=== PATIENT | male | born 1985 | race Caucasian/White ===

== ENCOUNTER 2020-05-12 15:00 | Outpatient (REF) | payer BC, SELFPAY ==
[2020-05-12 15:36] LABS: MANUAL DIFF FLAG NO
[2020-05-12 15:44] LABS: Basophils Percent Auto 0.4 % (0-2); Eosinophils Absolute Auto 0.1 X10*3/uL (0.0-0.4); Eosinophils Percent Auto 0.9 % (0-4); Hematocrit 41.2 % (42-52); Hemoglobin 14.1 g/dl (14.0-18.0); Imm Gran Abs Auto 0.02 X10*3/uL (0.00-0.03); Imm Gran Pct Auto 0.2 % (0.0-0.4); Lymphocytes Absolute Auto 2.8 X10*3/uL (1.2-4.9); Lymphocytes Percent Auto 25.2 % (20-40); Mean Corpuscular HGB Conc 34.2 g/dl (31.0-36.0); Mean Corpuscular Volume 87.7 fL (80-98); Mean Platelet Volume 8.7 fL (9.4-12.4); Monocytes Absolute Auto 0.8 X10*3/uL (0.1-1.2); Monocytes Percent Auto 7.4 % (2-11); Neutrophils Absolute Auto 7.4 X10*3/uL (2.0-8.3); Neutrophils Percent Auto 65.9 % (45-73); Platelet Count 260 X10*3/uL (160-400); Red Cell Distribution Width 12.9 % (11.0-16.0); White Blood Count 11.2 X10*3/uL (4.8-10.8)
[2020-05-12 16:00] LABS: Alanine Aminotransferase 16 U/L (0-40); Albumin Level 4.4 g/dL (3.5-5.0); Alkaline Phosphatase 67 U/L (39-117); Anion Gap 12 (12-20); Aspartate Amino Transferase 15 U/L (5-37); Bilirubin Total 0.8 mg/dL (0.0-1.0); Blood Urea Nitrogen 14 mg/dL (9-16); Calcium 8.9 mg/dL (8.4-10.2); Carbon Dioxide 24 mmol/L (22-29); Chloride 109 mmol/L (96-108); Cholesterol 145 mg/dL; Estimated Glomerular Filt Rate > 60; Glucose Fasting 76 mg/dL (60-99); HDL Cholesterol 33 mg/dL; LDL Cholesterol Calculated 96 mg/dl; Potassium 3.7 mmol/L (3.3-5.1); Sodium 141 mmol/L (135-145); Total Protein 6.8 g/dL (6.5-8.0); Triglycerides 83 mg/dL
== END 2020-05-12 15:01 | disposition home or self-care (01) ==
LOC: HO.LAB 15:00
PROVIDERS: PCP Internal Medicine; Visit Provider Internal Medicine
DX: Z00.00 Encounter for general adult medical examination without abnormal findings (principal)
CPT/HCPCS: 36415; 80053; 80061; 85025

== ENCOUNTER 2022-05-02 12:00 | Outpatient (REF) | payer BC, SELFPAY ==
[2022-05-02 12:20] LABS: MANUAL DIFF FLAG NO
[2022-05-02 14:23] LABS: Basophils Absolute Auto 0.1 X10*3/uL (0.0-0.2); Basophils Percent Auto 0.6 % (0-2); Eosinophils Absolute Auto 0.1 X10*3/uL (0.0-0.4); Eosinophils Percent Auto 1.4 % (0-4); Hematocrit 45.6 % (42.0-52.0); Hemoglobin 15.1 g/dl (14.0-18.0); Imm Gran Abs Auto 0.03 X10*3/uL (0.00-0.03); Imm Gran Pct Auto 0.4 % (0.0-0.4); Lymphocytes Percent Auto 23.1 % (20-40); Mean Corpuscular HGB Conc 33.1 g/dl (31.0-36.0); Mean Corpuscular Hemoglobin 29.2 pg (27.0-33.0); Mean Platelet Volume 8.5 fL (9.4-12.4); Monocytes Absolute Auto 0.7 X10*3/uL (0.1-1.2); Monocytes Percent Auto 8.3 % (2-11); Neutrophils Absolute Auto 5.6 x10*3/uL (2.0-8.3); Neutrophils Percent Auto 66.2 % (45-73); Platelet Count 244 X10*3/uL (160-400); Red Blood Count 5.18 X10*6/uL (4.60-5.80); Red Cell Distribution Width 13.4 % (11.0-16.0); White Blood Count 8.5 X10*3/uL (4.8-10.8)
[2022-05-02 14:50] LABS: Alanine Aminotransferase 28 U/L (0-40); Albumin Level 4.4 g/dL (3.5-5.0); Alkaline Phosphatase 83 U/L (39-117); Anion Gap 14 (12-20); Aspartate Amino Transferase 23 U/L (5-37); Bilirubin Total 0.4 mg/dL (0.0-1.0); Blood Urea Nitrogen 13 mg/dL (9-16); Calcium 9.3 mg/dL (8.4-10.2); Carbon Dioxide 22 mmol/L (22-29); Chloride 110 mmol/L (96-108); Cholesterol 175 mg/dL; Estimated Glomerular Filt Rate > 60; Glucose Random 80 mg/dL (60-115); Potassium 4.7 mmol/L (3.3-5.1); Sodium 141 mmol/L (135-145); Total Protein 6.9 g/dL (6.5-8.0)
== END 2022-05-02 12:01 | disposition home or self-care (01) ==
LOC: HO.LAB 12:00
PROVIDERS: PCP Internal Medicine; Visit Provider Internal Medicine
DX: Z00.00 Encounter for general adult medical examination without abnormal findings (principal)
CPT/HCPCS: 36415; 80053; 82465; 85025

== ENCOUNTER 2023-02-03 12:21 | Outpatient (REF) | payer BC, SELFPAY ==
[2023-02-03 12:45] LABS: MANUAL DIFF FLAG NO
[2023-02-03 12:58] LABS: Basophils Percent Auto 0.4 % (0-2); Eosinophils Absolute Auto 0.1 X10*3/uL (0.0-0.4); Eosinophils Percent Auto 1.6 % (0-4); Hematocrit 40.8 % (42.0-52.0); Imm Gran Abs Auto 0.03 X10*3/uL (0.00-0.03); Imm Gran Pct Auto 0.4 % (0.0-0.4); Lymphocytes Absolute Auto 1.6 X10*3/uL (1.2-4.9); Mean Corpuscular HGB Conc 34.3 g/dl (31.0-36.0); Mean Corpuscular Hemoglobin 29.5 pg (27.0-33.0); Mean Corpuscular Volume 86.1 fL (80.0-98.0); Mean Platelet Volume 8.5 fL (9.4-12.4); Monocytes Absolute Auto 0.8 X10*3/uL (0.1-1.2); Monocytes Percent Auto 11.6 % (2-11); Neutrophils Absolute Auto 4.4 x10*3/uL (2.0-8.3); Platelet Count 245 X10*3/uL (160-400); Red Blood Count 4.74 X10*6/uL (4.60-5.80); Red Cell Distribution Width 12.5 % (11.0-16.0)
[2023-02-03 14:07] LABS: Alanine Aminotransferase 8 U/L (0-40); Albumin Level 4.3 g/dL (3.5-5.0); Alkaline Phosphatase 71 U/L (39-117); Anion Gap 9 (12-20); Aspartate Amino Transferase 12 U/L (5-37); Bilirubin Total 0.4 mg/dL (0.0-1.0); Blood Urea Nitrogen 14 mg/dL (9-16); Calcium 8.7 mg/dL (8.4-10.2); Carbon Dioxide 24 mmol/L (22-29); Chloride 113 mmol/L (96-108); Estimated Glomerular Filt Rate > 60; Free T4 (Free Thyroxine) 0.89 ng/dL (0.71-1.85); Glucose Random 75 mg/dL (60-115); Potassium 4.1 mmol/L (3.3-5.1); Sodium 142 mmol/L (135-145); Total Protein 7.1 g/dL (6.5-8.0)
== END 2023-02-03 12:22 | disposition home or self-care (01) ==
LOC: HO.LAB 12:21
PROVIDERS: PCP Internal Medicine; Visit Provider Internal Medicine
DX: G43.909 Migraine, unspecified, not intractable, without status migrainosus (principal); R63.4 Abnormal weight loss; R21 Rash and other nonspecific skin eruption
CPT/HCPCS: 36415; 80053; 84439; 85025; 86140

== ENCOUNTER 2024-10-11 14:38 | Outpatient (REF) | payer OTHER, SELFPAY ==
[2024-10-11 15:35] LABS: MANUAL DIFF FLAG NO
[2024-10-11 16:08] LABS: Hematocrit 40.7 % (42.0-52.0); Hemoglobin 14.5 g/dl (14.0-18.0); Imm Gran Abs Auto 0.02 X10*3/uL (0.00-0.03); Imm Gran Pct Auto 0.3 % (0.0-0.4); Lymphocytes Absolute Auto 2.0 X10*3/uL (1.2-4.9); Mean Corpuscular HGB Conc 35.6 g/dl (31.0-36.0); Mean Corpuscular Hemoglobin 30.0 pg (27.0-33.0); Mean Corpuscular Volume 84.1 fL (80.0-98.0); NRBC Abs Auto 0.000 X10*3/uL (0.0-0.012); NRBC Pct Auto 0.0 /100WBC (0.0-0.2); Platelet Count 233 X10*3/uL (160-400); Red Blood Count 4.84 X10*6/uL (4.60-5.80); White Blood Count 7.7 X10*3/uL (4.8-10.8)
[2024-10-11 16:40] LABS: Alanine Aminotransferase 28 U/L (0-40); Albumin Level 4.7 g/dL (3.5-5.0); Alkaline Phosphatase 73 U/L (39-117); Anion Gap 10 (12-20); Aspartate Amino Transferase 20 U/L (5-37); Blood Urea Nitrogen 23 mg/dL (9-16); Calcium 8.7 mg/dL (8.4-10.2); Carbon Dioxide 21 mmol/L (22-29); Chloride 113 mmol/L (96-108); Cholesterol 171 mg/dL (<200); Estimated Glomerular Filt Rate > 60; HDL Cholesterol 36 mg/dL (>40); Potassium 3.8 mmol/L (3.3-5.1); Sodium 140 mmol/L (135-145); Total Protein 7.0 g/dL (6.5-8.0); Triglycerides 96 mg/dL (<150)
== END 2024-10-11 14:39 | disposition home or self-care (01) ==
LOC: HO.LAB 14:38
PROVIDERS: PCP Internal Medicine; Visit Provider Physician Assistant
DX: Z76.89 Persons encountering health services in other specified circumstances (principal); R59.0 Localized enlarged lymph nodes; F42.9 Obsessive-compulsive disorder, unspecified; F41.9 Anxiety disorder, unspecified; G40.909 Epilepsy, unspecified, not intractable, without status epilepticus; F32.A Depression, unspecified; Z13.31 Encounter for screening for depression; Z13.39 Encounter for screening examination for other mental health and behavioral disorders
CPT/HCPCS: 36415; 80048; 80061; 80076; 84443; 85025; 96127

== ENCOUNTER 2024-10-11 14:38 | Outpatient (AMB) | payer OTHER, SELFPAY ==
--- OUTSIDE RECORDS SUMMARY | 2024-10-11 14:40 | XMS_ITS | Clinical Summary ---
Author Organization [facility] Address [address] [place] [address] Care Team Providers Care Test Automation Architect Name Role Phone Unavailable Primary Care Provider Unavailabl e Social History Tobacco Use Types Packs/Day Years Used Date Smoking Tobacco: Never Assessed Sex and Gender Information Value Date Recorded Sex Assigned at Not on file Legal Sex Male 2:41 PM EDT Gender Identity Not on file Sexual Orientation Not on file Plan of Treatment Health Maintenance Due Date Last Done Comments Hepatitis C Screening 1986 DTaP/Tdap/Td (1 - Tdap) 2004 Hep B (1 of 3 - 19+ 3-dose series) 2005 COVID-19 Vaccine (2023-2 5 season) 2023 Influenza (#1) 2024 Zoster (Shingrix) (1 of 2) 2036 HPV Vaccine Aged Out No longer eligi ble based on patient's age to complete this topic Hep A Aged Out No longer eligi ble based on patient's age to complete this topic Hib Aged Out No longer eligi ble based on patient's age to complete this topic Meningococcal ACWY Aged Out No longer eligible based on patient's age to complete this topic Pneumococcal Aged Out No longer eligi ble based on patient's age to complete this topic
--- OUTSIDE RECORDS SUMMARY | 2024-10-11 14:40 | XMS_ITS | Clinical Summary ---
Author Organization [facility] Address [address] [place] [address] Care Team Providers Care Restaurant Cook Name Role Phone Pcp, No Primary Care Provider [phone] Social History Tobacco Use Types Packs/Day Years Used Date Smoking Tobacco: Never Assessed Sex and Gender Information Value Date Recorded Sex Assigned at Not on file Legal Sex Male 10:50 AM EDT Gender Identity Not on file Sexual Orientation Not on file Plan of Treatment Health Maintenance Due Date Last Done Comments Depression: Screening Annual ly using PHQ-2/9 in Adults 18 yrs or above (or HM Modifier)([facility]) 2004 Hepatitis C Virus Infection in Adolescents and Adults: Screening (or Modifier) ([facility]) 2004 SDOH Screening Reminder: Maria Teresa ually for all adults ([facility]) 2004 Tobacco Smoking Cessation: i n Adults excluding Women: Behavioral and Pharmacotherapy Interventions ([facility]) 2004 DTaP/Tdap/Td Vaccines ([facility]) (1 - Tdap) 2005 COVID-19 Vaccine Screening: Initial Series and Booster Status ([facility]) (2023- season) 2023 Flu Vaccination: Yearly for ages 18mos through 64 years (or Modifier)([facility]) 10/25/2024 Zoster/Shingles Vaccine Seri es Screening: Adults aged 18+ yrs (or HM Modifiers)([facility]) (1 of 2) 2036 Pneumococcal Vaccination Scr eening: Pts 0-19 & 19-49 yrs of age ([facility]) Aged Out No longer eligible based on patient's age to complete this topic Medical Devices Not on file Insurance [facility] Care Teams Restaurant Cook Relationship Specialty Start Date End Date Pcp, No PCP - General Family Medicine 07/13/20
--- NOTE | 2024-10-11 14:41 | MHC.PC.OV ---
Vital Signs 10/11/24 14:45 Height 5 ft 11 in Weight 85.275 kg BMI 26.2 BP 104/62 Blood Pressure Location Lt brachial Position Sitting Respiration 16 Pulse 52 Pulse Source Pulse Oximeter Temp 97.8 F Temp Source Temporal Artery Scan Pulse Oximetry (%) 98 Oxygen Delivery Method Room Air Intake Visit Reasons: meds - Fede pt. Labor Relations Or Personnel Negotiator Required: No Accompanied by: Self / Same As Patient Allergies phenytoin (From DILANTIN) Allergy (Unknown, Verified 10/11/24 14:41) HIVES Tobacco use date assessed: 10/11/24 HPI HPI Comments History of Present Illness Details 39-year-old male with history of epileptic seizure disorder, anxiety, OCD, depression presents to the office today to establish care and for management of chronic conditions. Epileptic seizure disorder-no longer following with Neurology. Had been with [facility], Dr. Mazariegos, but has been stable for the last 20 years without any seizures. He reports his seizures have been tonic-clonic. Compliant with lamotrigine 100 mg twice daily and topiramate. Mood disorder/OCD-still reports significant anxiety, jenna 7 score 14. However reports he manages this well. He is no longer following with Psychiatry counselor. He is able to perform daily activities with anxiety but is overall manageable. Continues on the medications above. Concerns: Cervical lymphadenopathy over last few weeks. No fevers, chills, weight loss, sore throat Health maintenance: Screening colonoscopies to begin at age 45 ROS: General: No fevers, malaise, unintentional weight loss HEENT: No blurred vision, diplopia. No sore throat, nasal congestion, rhinorrhea, sinus pain, ear pain neck: se ehpi Cardiovascular: No chest pain, palpitations, or leg edema Respiratory: No shortness of breath, wheezing, cough MSK: No myalgia, back pain Neuro: No headaches, weakness, paresthesias. see hpi Psych: see hpi Skin: No rashes or lesions EXAM: Constitutional - Awake and Alert, No apparent distress Eyes - PERRL Neck - several fixed firm lymph nodes in the anterior cervical chain and posterior chain about 1 cm in size Cardiovascular - S1S2, RRR, No edema Respiratory - Normal lung expansion, Normal respiratory effort, No respiratory distress, CTA bilaterally Extremities - no calf tenderness bilaterally, no swelling Skin - Warm/Dry Neurological - Alert & oriented x3 Psychological - Appropriate affect [facility] Medical History (Updated 10/11/24 @ 15:12 by NIDIA Kevin) Seizure disorder Depression Anxiety OCD (obsessive compulsive disorder) Social History Patient Tobacco Use Status: Former Tobacco user Tobacco use type: Cigarette e-Cigarette/Vaping Use: Never Used Questionnaire PHQ-9 Over the last 2 weeks, how often have you been bothered by any of the following problems? 1. Little interest or pleasure in doing things: several days 2. Feeling down, depressed, or hopeless: several days 3. Trouble falling or staying asleep, or sleeping too much: not at all 4. Feeling tired or having little energy: several days 5. Poor appetite or overeating: not at all 6. Feeling bad about yourself - or that you are a failure or have let yourself or your family down: several days 7. Trouble concentrating on things, such as reading the newspaper or watching television: several days 8. Moving or speaking so slowly that other people could have noticed. Or the opposite - being so fidgety or restless that you have been moving around a lot more than usual: several days 9. Thoughts that you would be better off or of hurting yourself in some way: not at all Total score: 6 Depression Screening Interpretation: Positive Depression Screening Done: Yes [id number] - PHQ-9 Billing: Yes Source: Developed by Drs. Derek Walsh, Josi Dominguez, Garland Marin and colleagues, with an educational nick from [employer]. Thrive Questionnaire Date Thrive assessed: 10/11/24 I am a: Patient What is your living situation today?: I have a steady place to live Within the past 12 months, did the food you bought not last and you didn't have the money to get more?: Never true Within the past 12 months, did you worry whether your food would run out before you got money to buy more?: Never true Do you have trouble paying for medicines?: No Do you have trouble getting transportation to medical appointments?: No Do you have trouble paying your heating and electricity bill?: No Do you have trouble taking care of your child, family member or friend?: No Do you have trouble with day-to-day activities such as bathing, preparing meals, shopping, managing finances, etc.?: No Are you currently unemployed and looking for a job?: No Are you interested in more education?: No THRIVE Score: 0 AUDIT C Alcohol Use Questionnaire (AUDIT-C) 1. How often do you have a drink containing alcohol?: Monthly or less 2. How many drinks containing alcohol do you have on a typical day when you are drinking?: 1 or 2 Total Score: 1 JENAN-7 AMB Questionnaire JENNA-7 Date JENNA - 7 assessed: 10/11/24 Feeling nervous, anxious, or on edge: 2 = More than half the days Not being able to stop or control worryin = More than half the days Worrying too much about different things: 2 = More than half the days Trouble relaxin = More than half the days Being so restless that it is hard to sit still: 2 = More than half the days Becoming easily annoyed or irritable: 2 = More than half the days Feeling afraid as if something awful might happen: 2 = More than half the days Total JENNA-7 score (0-4 normal; 5-9 mild; 10-14 moderate; 15-21 severe): 14 Source: Developed by Drs. Derek Walsh, Josi Dominguez, Garland Marin and colleagues, with an educational nick from [employer]. JENNA-7 Assessment Billing JENNA-7 Assessment Tool: JENNA-7 Assessment 57391 Physical exam (Primary Care) Vital Signs: Last Vital Signs Temp 97.8 F 10/11/24 14:45 Pulse 52 10/11/24 14:45 Resp 16 10/11/24 14:45 BP 104/62 10/11/24 14:45 Pulse Ox 98 10/11/24 14:45 Oxygen Delivery Method Room Air 10/11/24 14:45 BMI result Body Mass Index 26.2 Tobacco/Smoking Status: Tobacco use Status Tobacco use date assessed 10/11/24 10/11/24 14:47 Patient Tobacco Use Status Former Tobacco user 10/11/24 14:47 Tobacco use type Cigarette 10/11/24 14:47 e-Cigarette/Vaping Use Never Used 10/11/24 14:47 PHQ-9: PHQ-9 Score PHQ-9: Total score 6 10/11/24 15:13 Depression Screening Interpretation: Positive Thrive Assessment: Date of Thrive Assessment Date Thrive assessed 10/11/24 10/11/24 15:13 Coding Level of Care Code New Pt Level 4 (73296) Complex EM visit Add On G2211 Diagnoses Cervical adenopathy R59.0 OCD (obsessive compulsive disorder) F42.9 Anxiety F41.9 Seizure disorder G40.909 Additional Codes JENNA-7 Assessment Billing - JENNA-7 Assessment Tool: JENNA-7 Assessment 06220 ([id number]) PHQ-9 - 61505 - PHQ-9 Billing: Yes ([id number]) Assessment & Plan Assessment & Plan (1) Cervical adenopathy: Code(s): R59.0 - Localized enlarged lymph nodes Category: Medical Plan: Acute. Check CBC. No concerning associated symptoms at this time. If persistent, will evaluate ultrasound (2) OCD (obsessive compulsive disorder): Code(s): F42.9 - Obsessive-compulsive disorder, unspecified Category: Medical Plan: Stable. Continue with coping mechanisms and medications as prescribed (3) Anxiety: Code(s): F41.9 - Anxiety disorder, unspecified Category: Medical Plan: JENNA-7 score 14. Continue with coping mechanisms and medications as prescribed (4) Seizure disorder: Code(s): G40.909 - Epilepsy, unspecified, not intractable, without status epilepticus Category: Medical Plan: Stable times 20 years. Continue Lamictal and Topamax. Plan Follow up for her annual physical exam Orders: Orders Basic Metabolic Panel Today F32.A - Depression, unspecified, F41.9 - Anxiety disorder, unspecified, F42.9 - Obsessive-compulsive disorder, unspecified, G40.909 - Epilepsy, unspecified, not intractable, without status epilepticus Complete Blood Count Auto Diff Today F32.A - Depression, unspecified, F41.9 - Anxiety disorder, unspecified, F42.9 - Obsessive-compulsive disorder, unspecified, G40.909 - Epilepsy, unspecified, not intractable, without status epilepticus Lipid Panel Today F32.A - Depression, unspecified, F41.9 - Anxiety disorder, unspecified, F42.9 - Obsessive-compulsive disorder, unspecified, G40.909 - Epilepsy, unspecified, not intractable, without status epilepticus Liver Panel Today F32.A - Depression, unspecified, F41.9 - Anxiety disorder, unspecified, F42.9 - Obsessive-compulsive disorder, unspecified, G40.909 - Epilepsy, unspecified, not intractable, without status epilepticus TSH reflex Free T4 Today F32.A - Depression, unspecified, F41.9 - Anxiety disorder, unspecified, F42.9 - Obsessive-compulsive disorder, unspecified, G40.909 - Epilepsy, unspecified, not intractable, without status epilepticus
[2024-10-11 14:45] VITALS: BP 104/62; PULSE 52; RESP 16; TEMP 36.6; O2SAT 98; BMI 26.2
== END 2024-10-11 15:12 | disposition home or self-care (01) ==
LOC: HO.HMCHD 14:39
PROVIDERS: PCP Internal Medicine; Visit Provider Physician Assistant
DX: R59.0 Localized enlarged lymph nodes (principal); F42.9 Obsessive-compulsive disorder, unspecified; F41.9 Anxiety disorder, unspecified; G40.909 Epilepsy, unspecified, not intractable, without status epilepticus

== ENCOUNTER 2024-11-20 13:59 | Outpatient (AMB) | payer OTHER, SELFPAY ==
--- NOTE | 2024-11-20 14:11 | A.OFFPC_ITS ---
Vital Signs 11/20/24 14:27 Height 5 ft 11 in Weight 84.822 kg BMI 26.1 BP 108/78 Respiration 14 Pulse 59 Pulse Source Pulse Oximeter Temp 98.1 F Temp Source Temporal Artery Scan Pulse Oximetry (%) 99 Oxygen Delivery Method Room Air Intake Visit Reasons: Annual / Dr Mistry Small Battery Plate Assembler Required: No Accompanied by: Self / Same As Patient Allergies phenytoin (From DILANTIN) Allergy (Unknown, Verified 11/20/24 14:14) HIVES Tobacco use date assessed: 10/11/24 Dental Screening Dental Screen Date: 11/20/24 Did you have a dental visit in the last 12 months?: Yes Did you have a dental problem in the last 6 months where you did not have access to dental care?: No Was dental information given to patient?: No HPI HPI Comments History of Present Illness Details 31-year-old male with history of unspeci fied seizure disorder, OCD, depression/anxiety presents to the office today for management of chronic conditions and to establish care as well as for annual physical exam. He currently lives with and 2 kids. Works as a metal machinist. Occasional alcohol use. Quit smoking cigarettes several months, smoked about 1ppd for about 20 years. No illicit drugs. Occ MJ use- smoking. Currently not following the most healthy diet, but working on improving. Walks and bikes a lot for exercise, hoping to improve building a gym in the basement). Epileptic seizure disorder-no longer following with Neurology. Had been with [facility]rology, Dr. Mazariegos, but has been stable for the last 20 years without any seizures. He reports his seizures have been tonic-clonic. Compliant with lamotrigine 100 mg twice daily and topiramate. Mood disorder/OCD-still reports significant anxiety, jenna 7 score 14. However reports he manages this well. He is no longer following with Psychiatry counselor. He is able to perform daily activities with anxiety but is overall manageable. Continues on the medications above. Concerns: Cervical lymphadenopathy ongoing x 2 months. No fevers, chills, weight loss, night sweats sore throat Posterior L ear pain ongoing x 1 week. no hearing loss, wears ear protection. no vertigo or tinnitus. Health maintenance: Colonoscopy starting at age 45 Eye exams annually Dentist twice yearly Reviewed past medical, surgical, social, family history ROS: General: No fevers, malaise, unintentional weight loss HEENT: No blurred vision, diplopia. No sore throat, nasal congestion, rhinorrhea, sinus pain, ear pain. No hearing loss. see hpi Neck -see hpi Cardiovascular: No chest pain, palpitations, or leg edema Respiratory: No shortness of breath, wheezing, cough GI: No dysphagia, odynophagia, globus sensation. No abdominal pain, nausea, vomiting, diarrhea, constipation, melena, hematochezia : No dysuria, hematuria, increased urinary frequency, decreased urinary output. No testicular swelling or pain. No penile discharge MSK: No myalgia, back pain, arthralgias Neuro: No headaches, weakness, paresthesias Psych: no depression/anxiery. No AH/VH. No SI/HI Skin: No rashes or lesions EXAM: Constitutional - Awake and Alert, No apparent distress Eyes - PERRLA, EOMI. Anicteric Ears - external ears normal, canals clear, TMs intact and pearly girard with good cone of light. No tenderness over the left mastoid Nose- septum midline, nares clear, no sinus tenderness Mouth/throat- mucosa moist, tongue and uvula midline, no erythema/edema or tonsillar adenopathy. Neck-trachea midline, thyroid symmetric without palpable nodules. L sided R posterior adenopathy Cardiovascular - S1S2, RRR, No edema Respiratory - Normal lung expansion, Normal respiratory effort, No respiratory distress, CTA bilaterally Gastrointestinal - NT / ND; +BS; No rebound or guarding - No CVA tenderness Extremities - no calf tenderness bilaterally, no swelling Musculoskeletal - Normal inspection, normal ROM Skin - Warm/Dry, no concerning lesions Neurological - Alert & oriented x3, CN II-XII in tact, 5/5 strength BUE and BLE, 2+ patellar reflexes, sensation intact Psychological - Appropriate affect PFSH Medical History Seizure disorder Depression Anxiety OCD (obsessive compulsive disorder) Surgical History S/P vasectomy S/P biopsy Family History Mother Anxiety FH: ovarian cancer Paternal Grandfather CAD (coronary artery disease) Diabetes Maternal Grandfather Prostate cancer Social History Housing: House Patient Tobacco Use Status: Former Tobacco user Tobacco use type: Cigarette e-Cigarette/Vaping Use: Never Used service: No Current occupational status: employed Cognitive needs: No Hearing needs: No Vision needs: No Questionnaire PHQ-9 Over the last 2 weeks, how often have you been bothered by any of the following problems? 1. Little interest or pleasure in doing things: several days 2. Feeling down, depressed, or hopeless: several days 3. Trouble falling or staying asleep, or sleeping too much: not at all 4. Feeling tired or having little energy: several days 5. Poor appetite or overeating: not at all 6. Feeling bad about yourself - or that you are a failure or have let yourself or your family down: several days 7. Trouble concentrating on things, such as reading the newspaper or watching television: not at all 8. Moving or speaking so slowly that other people could have noticed. Or the opposite - being so fidgety or restless that you have been moving around a lot more than usual: not at all 9. Thoughts that you would be better off or of hurting yourself in some way: not at all Total score: 4 Source: Developed by Drs. Derek Walsh, Josi Dominguez, Garland Marin and colleagues, with an educational nick from [employer]. Thrive Questionnaire Date Thrive assessed: 11/20/24 I am a: Patient What is your living situation today?: I have a steady place to live Within the past 12 months, did the food you bought not last and you didn't have the money to get more?: Sometimes True Within the past 12 months, did you worry whether your food would run out before you got money to buy more?: Sometimes True Do you have trouble paying for medicines?: No Do you have trouble getting transportation to medical appointments?: No Do you have trouble paying your heating and electricity bill?: No Do you have trouble taking care of your child, family member or friend?: No Do you have trouble with day-to-day activities such as bathing, preparing meals, shopping, managing finances, etc.?: No Are you currently unemployed and looking for a job?: No Are you interested in more education?: No Please select the resources that you would like help with: None THRIVE Score: 2 JENNA-7 AMB Questionnaire JENNA-7 Date JENNA - 7 assessed: 11/20/24 Feeling nervous, anxious, or on edge: 1 = Several days Not being able to stop or control worryin = Several days Worrying too much about different things: 1 = Several days Trouble relaxin = Several days Being so restless that it is hard to sit still: 0 = Not at all Becoming easily annoyed or irritable: 2 = More than half the days Feeling afraid as if something awful might happen: 0 = Not at all Total JENNA-7 score (0-4 normal; 5-9 mild; 10-14 moderate; 15-21 severe): 6 Source: Developed by Drs. Derek Walsh, Josi Dominguez, Garland Marin and colleagues, with an educational nick from [employer]. Physical exam (Primary Care) Vital Signs: Last Vital Signs Temp 98.1 F 11/20/24 14:27 Pulse 59 11/20/24 14:27 Resp 14 11/20/24 14:27 BP 108/78 11/20/24 14:27 Pulse Ox 99 11/20/24 14:27 Oxygen Delivery Method Room Air 11/20/24 14:27 BMI result Body Mass Index 26.1 Tobacco/Smoking Status: Tobacco use Status Tobacco use date assessed 10/11/24 11/20/24 14:13 Patient Tobacco Use Status Former Tobacco user 11/20/24 14:13 Tobacco use type Cigarette 11/20/24 14:13 e-Cigarette/Vaping Use Never Used 11/20/24 14:13 PHQ-9: PHQ-9 Score PHQ-9: Total score 4 11/20/24 14:39 Thrive Assessment: Date of Thrive Assessment Date Thrive assessed 11/20/24 11/20/24 14:32 Coding Level of Care Code Est Pt Prev Care 18-39y(45549) Diagnoses Routine medical exam Z00.00 Eustachian tube dysfunction H69.90 OCD (obsessive compulsive disorder) F42.9 Seizure disorder G40.909 Cervical adenopathy R59.0 Assessment & Plan Assessment & Plan (1) Routine medical exam: Code(s): Z00.00 - Encounter for general adult medical examination without abnormal findings Plan: Plan as below (2) Eustachian tube dysfunction: Code(s): H69.90 - Unspecified Eustachian tube disorder, unspecified ear Category: Medical Plan: Recommend oral antihistamine and/or intranasal corticosteroid (3) OCD (obsessive compulsive disorder): Code(s): F42.9 - Obsessive-compulsive disorder, unspecified Category: Medical Plan: Stable. Continue current therapies (4) Seizure disorder: Code(s): G40.909 - Epilepsy, unspecified, not intractable, without status epilepticus Category: Medical Plan: Stable. Continue current therapies (5) Cervical adenopathy: Code(s): R59.0 - Localized enlarged lymph nodes Category: Medical Plan: No alarm symptoms. Reviewed last CBC which is reassuring. Ultrasound of the neck ordered for further evaluation Plan Prior labs from 09/2024 reviewed Continue with screening colonoscopies and PSA Continue following for annual skin exams and use sun protection Annual eye exams Wear seat belt in car Recommend regular exercise and healthy diet Follow up in 1 year Orders: Orders US soft tiss head and/or neck Today F42.9 - Obsessive-compulsive disorder, unspecified, G40.909 - Epilepsy, unspecified, not intractable, without status epilepticus, R59.0 - Localized enlarged lymph nodes
[2024-11-20 14:27] VITALS: BP 108/78; PULSE 59; RESP 14; TEMP 36.7; O2SAT 99; BMI 26.1
--- OUTSIDE RECORDS SUMMARY | 2024-11-20 14:55 | XMS_ITS | Clinical Summary ---
Author Organization [facility] Address [address] [place] [address] Care Team Providers Care Proofer Black And White Name Role Phone Unavailable Primary Care Provider [...] (Shingrix) (1 of 2) 2036 HPV Vaccine (No Doses Required) Completed Hep A Aged Out No longer eligi [...]
--- OUTSIDE RECORDS SUMMARY | 2024-11-20 14:55 | XMS_ITS | Clinical Summary ---
Author Organization [facility] [employer] [facility] Address [address] [place] [address] Care Team Providers Care Hairmasters Manager Name Role Phone Pcp, No Primary Care Provider [phone] Social History Tobacco Use Types Packs/Day Years [...] Adults 18 yrs or above (or HM Modifier)([facility]) 2004 Hepatitis C Virus Infection in Adolescents and Adults: Screening (or Modifier) ([facility]) 2004 SDOH Screening Reminder: Maria Teresa ually for all adults ([facility]) 2004 Tobacco Smoking Cessation: i n Adults excluding Women: Behavioral and Pharmacotherapy Interventions ([facility]) 2004 DTaP/Tdap/Td Vaccines ([facility]) (1 - Tdap) 2005 COVID-19 Vaccine Screening: Initial Series and Booster Status ([facility]) (2023- season) 2023 Flu Vaccination: Yearly for ages 18mos through 64 years (or Modifier)([facility]) 10/25/2024 Zoster/Shingles Vaccine Seri es Screening: Adults aged 18+ yrs (or HM Modifiers)([facility]) (1 of 2) 2036 Pneumococcal Vaccination Scr eening: Pts 0-19 & 19-49 yrs of age ([facility]) Aged Out No longer eligible based on patient's age to complete this topic Medical Devices Not on file Insurance [facility] Care Teams Hairmasters Manager Relationship Specialty Start Date End Date Pcp, No PCP - General Family Medicine 07/13/20
== END 2024-11-20 14:58 | disposition home or self-care (01) ==
LOC: HO.HMCHD 14:00
PROVIDERS: PCP Internal Medicine; Visit Provider Physician Assistant
DX: Z00.00 Encounter for general adult medical examination without abnormal findings (principal); H69.90 Unspecified Eustachian tube disorder, unspecified ear; F42.9 Obsessive-compulsive disorder, unspecified; G40.909 Epilepsy, unspecified, not intractable, without status epilepticus; R59.0 Localized enlarged lymph nodes